=== PATIENT | male | born 1930 | race Caucasian/White ===

== ENCOUNTER 2017-06-26 10:14 | Emergency (ER) | payer OTHER, MEDICARE ==
[~2017-06-26] VITALS: Ht 167.6 cm; Wt 65.5 kg
[~2017-06-26 10:14] MED LIST: ADULT LOW DOSE81 M1 PO; ASPIR-LOW81 MG PO; Ascorbic Acid,Ester- PO; Aspirin E.C. PO; CLEOCIN300 MG PO; CLONIDINE HCL0.1 MG PO; Coumadin Protocol PO; DAILY VITAMIN1 EAC8 PO; Flora-Q,Risaquad PO; Folvite PO; HUMALOG100 UNIT/1 SC; HUMALOG100 UNITS/ SQ; HUMULIN N100 UNIT/1 SQ; HUMULIN N300 UNIT/3; HUMULIN N300 UNIT/3 SC; LEVEMIR FL100 UNITS/ SC; LIPITOR80 MG PO; LOPRESSOR25 MG PO; Lipitor PO; METOPROLOL SUCC25 MG PO; Miralax, Glycolax PO; NOVOLIN N100 UNITS/ SC; NOVOLIN,HU100 UNITS1 SC; NOVOLOG 10100 UNITS/ SC; NOVOLOG PE100 UNITS/ SC; Norvasc PO; Omnicef PO; PRILOSEC20 MG PO; PriLOSEC PO; Senokot S,Pericolace PO; TYLENOL REGULA325 MG PO; Theragran PO; Toprol XL PO; VITAMIN D31000 UNIT PO; Vicodin,Norco 5/325 PO; Vitamin D PO; ZESTRIL,PRINIVI10 M1 PO; Zestril,Prinivil PO
[2017-06-26 12:23] LABS: EOSINOPHIL (%) 3.5 % (0-5); EOSINOPHIL COUNT 0.2 K/uL (0-0.3); IMMATURE GRANULOCYTE (%) 0.3 % (0.0-0.7); INSTRUMENT ABS NEUTROPHIL CT 4.3 K/uL; MCH 30.2 PG (29.0-34.0); MCHC 32.9 G/DL (30.0-36.0); MCV 91.6 FL (86-99); MEAN PLAT.VOLUME 11.1 uM^3 (9.0-12.4); MONOCYTE (%) 7.3 % (3-12); MONOCYTE COUNT 0.4 K/uL (0-0.8); NEUTROPHIL (%) 71.5 % (45-76); NEUTROPHIL COUNT 4.3 K/uL (1.8-6.4); PLATELET COUNT 132 K/uL (156-360); RBC DIS.WIDTH-CV 13.2 % (11.8-14.6); RED BLOOD COUNT 3.71 M/uL (4.00-5.50)
[2017-06-26 12:33] LABS: CHLORIDE 105 mEq/L (99-109); POTASSIUM 4.9 mEq/L (3.7-5.4); SODIUM 135 mEq/L (136-147)
[2017-06-26 12:37] LABS: ANION GAP 9 MEQ/L (2-14)
[2017-06-26 12:39] LABS: GFR ESTIMATE (CALCULATED) 21 mL/min/
[2017-06-26 12:40] LABS: UREA NITROGEN (BUN) 66 mg/dL (9-23)
[2017-06-26 12:43] LABS: GLUCOSE 422 mg/dL (70-99)
[2017-06-26] MEDS ORDERED: CLEOCIN300 MG PO ×2 (14:41→14:44)
[2017-06-26 14:43] LABS: POINT-OF-CARE METER ID UU13113702
[2017-06-26 14:49] VITALS: BP 158/69
== END 2017-06-26 14:51 | disposition home or self-care (01) ==
LOC: EME 10:14
PROVIDERS: Emergency Medicine
DX: E11.65 Type 2 diabetes mellitus with hyperglycemia (principal); L03.032 Cellulitis of left toe; Z85.038 Personal history of other malignant neoplasm of large intestine; E78.5 Hyperlipidemia, unspecified; I10 Essential (primary) hypertension; Z85.528 Personal history of other malignant neoplasm of kidney; Z90.5 Acquired absence of kidney; Z79.82 Long term (current) use of aspirin; Z79.4 Long term (current) use of insulin
CPT/HCPCS: 73630; 80048; 82948; 85025; 99281; 99285; J7030

== ENCOUNTER 2017-12-02 07:01 | Emergency (ER) | payer OTHER, MEDICARE ==
[~2017-12-02] VITALS: Ht 167.6 cm; Wt 70.4 kg
[2017-12-02 08:19] LABS: HEMATOCRIT 36.2 % (38.0-50.0); HEMOGLOBIN 12.1 G/DL (12.5-16.6); MCH 30.7 PG (29.0-34.0); MCHC 33.4 G/DL (30.0-36.0); MCV 91.9 FL (86-99); PLATELET COUNT 145 K/uL (156-360); RBC DIS.WIDTH-CV 12.9 % (11.8-14.6); RBC DIS.WIDTH-SD 43.6 % (39-53); RED BLOOD COUNT 3.94 M/uL (4.00-5.50); WHITE BLOOD COUNT 7.9 K/uL (4.1-10.2)
[2017-12-02 08:26] LABS: CHLORIDE 106 mEq/L (99-109); POTASSIUM 5.1 mEq/L (3.7-5.4); SODIUM 138 mEq/L (136-147)
[2017-12-02 08:27] LABS: GLUCOSE 190 mg/dL (70-99)
[2017-12-02 08:31] LABS: CREATININE 2.6 mg/dL (0.6-1.3); GFR ESTIMATE (CALCULATED) 25 mL/min/ (58.99-99999)
[2017-12-02 08:32] LABS: UREA NITROGEN (BUN) 57 mg/dL (9-23)
[2017-12-02 13:13] LABS: APPEARANCE CLEAR ((CLEAR)); BILIRUBIN NEGATIVE; BLOOD NEGATIVE; COLOR STRAW ((YELLOW)); GLUCOSE (STRIP) 150; KETONES 5; LEUKOCYTES NEGATIVE; NITRITE NEGATIVE; PROTEIN (STRIP) 100; SPECIFIC GRAVITY 1.011 (1.000-1.030); UROBILINOGEN 0.2 MG/DL (0.2-1.0)
[2017-12-02 13:16] LABS: BACTERIA NONE SEEN /HPF; EPITHELIAL CELLS NONE SEEN /HPF; MUCUS NONE SEEN /LPF; RED BLOOD CELLS 0-5 /HPF (0-5); WHITE BLOOD CELLS 0-5 /HPF (0-5)
[2017-12-02] MEDS ORDERED: MECLIZINE HCL25 MG PO (17:06)
[2017-12-02 18:11] VITALS: BP 188/74
== END 2017-12-02 18:12 | disposition home or self-care (01) ==
LOC: EME 07:01
PROVIDERS: Emergency Medicine; Physician Assistant
DX: G45.9 Transient cerebral ischemic attack, unspecified (principal); I12.9 Hypertensive chronic kidney disease with stage 1 through stage 4 chronic kidney disease, or unspecified chronic kidney disease; E11.22 Type 2 diabetes mellitus with diabetic chronic kidney disease; N18.9 Chronic kidney disease, unspecified; Z86.73 Personal history of transient ischemic attack (TIA), and cerebral infarction without residual deficits; E78.5 Hyperlipidemia, unspecified; Z85.528 Personal history of other malignant neoplasm of kidney; Z85.038 Personal history of other malignant neoplasm of large intestine; Z88.8 Allergy status to other drugs, medicaments and biological substances
CPT/HCPCS: 70450; 70544; 70551; 71046; 80048; 81003; 82948; 85027; 93005; 93880; 99281; 99285